=== PATIENT | male | born 1975 | race American Indian/Alaskan Native ===

== ENCOUNTER 2021-07-01 19:04 | Emergency (ER) | payer BC, MEDICARE ==
[2021-07-01] MEDS ORDERED: ACETAMINOPHEN 325 MG TAB PO ONE (21:30)
--- NOTE | 2021-07-01 21:30 | Emergency Department Report ---
ED Lower Extremity HPI - General Chief Complaint: Extremity Injury, Lower Stated Complaint: ANKLE PAIN Time Seen by Provider: 07/01/21 21:23 Source: patient Mode of arrival: Ambulatory Limitations: Physical Limitation - History of Present Illness Initial Comments: The patient was evaluated in the emergency department for symptoms described in the history of present illness. He/she was evaluated in the context of the global COVID-19 pandemic, which necessitated consideration that the patient might be at risk for infection with the virus that causes COVID-19. Institutional protocols and algorithms that pertain to the evaluation of patients at risk for COVID-19 are in a state of rapid change based on information released by regulatory bodies including the CDC and federal and state organizations. These policies and algorithms were followed during the patient's care in the emergency department. Please note that these policies, procedures and recommendations changed on a rapid basis. The patient is a 45-year-old gentleman. He is not known to myself previously. He has a history of end-stage renal disease on hemodialysis, Monday, last dialysis session was yesterday, scheduled for dialysis tomorrow, also reports a history of hypertension. He presented to the ER today with a complaint of accidental right-sided ankle p ain, after tripping off of a hover board. This happened approximately 4 hours ago. He believes that he did not hit his head or neck, and he only has throbbing right-sided ankle pain which is diffuse, and also anterior tibial pain. He denies additional injuries and complaints MD Complaint: ankle injury, fall -: Sudden, hour(s) Injury: Ankle: Right Type of Injury: blunt Improves With: rest Worsens With: movement, palpation Context: fall, direct blow, other (Fell out of the hover board) Associated Symptoms: swelling, able to partially bear weight. denies: numbness, tingling - Related Data Previous Rx's Medication Instructions Recorded Last Taken Type Acetaminophen [Tylenol] 650 mg PO Q4HR PRN #30 cap 07/01/21 Unknown Rx HYDROmorphone [Dilaudid] 1 mg PO Q6HR PRN #6 tablet 07/01/21 Unknown Rx Allergies Allergy/AdvReac Type Severity Reaction Status Date / Time No Known Allergies Allergy Verified 07/01/21 20:32 ED Review of Systems ROS: Stated complaint: ANKLE PAIN Other details as noted in HPI Eyes: denies: eye discharge ENT: denies: epistaxis Respiratory: denies: cough Cardiovascular: denies: chest pain Gastrointestinal: denies: abdominal pain Musculoskeletal: joint swelling, arthralgia, myalgia Neurological: denies: weakness ED Past Medical Hx - Past Medical History Hx Renal Disease: Yes (DIALYSIS MWF) - Surgical History Hx Cholecystectomy: Yes - Medications Home Medications: Home Medications Medication Instructions Recorded Confirmed Last Taken Type Acetaminophen [Tylenol] 650 mg PO Q4HR PRN #30 cap 07/01/21 Unknown Rx HYDROmorphone [Dilaudid] 1 mg PO Q6HR PRN #6 tablet 07/01/21 Unknown Rx ED Physical Exam - General Limitations: No Limitations, Physical Limitation General appearance: alert, in no apparent distress - Head Head exam: Present: atraumatic, normocephalic - Eye Eye exam: Present: normal appearance, EOMI. Absent: nystagmus - ENT ENT exam: Present: normal exam, normal orophraynx, mucous membranes moist, normal external ear exam - Neck Neck exam: Present: normal inspection, full ROM. Absent: tenderness, meningismus - Respiratory Respiratory exam: Present: normal lung sounds bilaterally. Absent: respiratory distress, wheezes, rales, rhonchi, stridor, decreased breath sounds, prolonged expiratory - Cardiovascular Cardiovascular Exam: Present: regular rate, normal rhythm, normal heart sounds. Absent: bradycardia, tachycardia, irregular rhythm, systolic murmur, diastolic murmur, rubs, gallop - GI/Abdominal GI/Abdominal exam: Present: soft. Absent: distended, tenderness, guarding, rebound, rigid, pulsatile mass - Rectal Rectal exam: Present: deferred - Extremities Exam Extremities exam: Present: full ROM (Bilateral upper extremities, left lower extremity. Right hip, right knee. Range of motion right ankle intact, although slow secondary to pain.), tenderness (Right ankle tenderness. There is no knee tenderness. There is no hip tenderness.), other (There is a left upper extremity fistula, with an appropriate thrill. 2+ pulses noted in the bilateral upper and lower extremities. The upper extremities are nontender. The left lower extremity is nontender. The right lower extremity is nontender with the exception of the right ankle.). Absent: normal inspection (The right ankle is swollen. Right ankle is tender anteriorly, medially and laterally.) - Back Exam Back exam: Present: normal inspection. Absent: tenderness, CVA tenderness (R), CVA tenderness (L), paraspinal tenderness, vertebral tenderness - Neurological Exam Neurological exam: Present: alert, oriented X3, other (No facial droop. Tongue midline. Extraocular movements intact bilaterally. Facial sensation intact to light touch in V1, V2, V3 distribution bilaterally. 5 and a 5 strength in 4 extremities. Sensation intact to light touch in 4 extremities.). Absent: motor sensory deficit - Psychiatric Psychiatric exam: Present: normal affect, normal mood - Skin Skin exam: Present: warm, dry, intact, normal color. Absent: rash ED Course Vital Signs 07/01/21 07/01/21 20:34 21:45 Temperature 98.6 F Pulse Rate 87 Respiratory 20 14 Rate Blood Pressure 190/90 O2 Sat by Pulse 100 Oximetry - Reevaluation(s) Reevaluation #1: 07/01/21 21:35 Differential diagnosis, including but limited to: Sprain, strain, fracture, dislocation Assessment and plan: 45-year-old gentleman, who is afebrile with reassuring vital signs with exception of chronic hypertension (please reference the [employer] clinical policy on asymptomatic hypertension), presenting with isolated right ankle pain after mechanical fall from a hover board. Patient drove to the emergency room today. Unfortunately since he is a dialysis patient, NSAIDs contraindicated. Start with acetaminophen, obtain right ankle x-ray. Reassess. Anticipate discharge with splint, weightbearing as tolerated with cane, outpatient follow-up with podiatry, orthopedics or sports medicine. He is scheduled for hemodialysis tomorrow. He is not volume overloaded clinically. He denies additional i njuries and complaints 07/01/21 22:05 X-ray of the right ankle demonstrates an isolated left distal fibular fracture. Aircast, crutches, nonweightbearing, as needed pain medication, outpatient orthopedic/podiatry follow-up. ED Lower Extremity MDM - Lab Data Vital Signs 07/01/21 20:34 Temperature 98.6 F Pulse Rate 87 Respiratory 20 Rate Blood Pressure 190/90 O2 Sat by Pulse 100 Oximetry - Radiology Data Radiology results: report reviewed, image reviewed interpreted by me: X-ray of the ankle, reviewed by myself, 3 views, right ankle, demonstrates minimally displaced right distal fibular fracture. No additional injuries n oted. Incidental calcified anterior artery is noted. Right ankle-3 views INDICATION: fall from hover board, right ankle pain. COMPARISON: None available. IMPRESSION: [place] type B fracture of the lateral malleolus with fracture line at the level of the tibiotalar joint space. Considerable overlying soft tissue swelling. No other fracture identified. Question slight widening of the medial mortise which can be seen with underlying ligamentous injury. Mild enthesopathic change along the calcaneal tuberosity. Signer Name: Branden Che MD Signed: 07/01/2021 9:30 PM Workstation Name: [id number] Critical care attestation.: If time is entered above; I have spent that time in minutes in the direct care of this critically ill patient, excluding procedure time. ED Disposition Clinical Impression: End stage renal disease, Elevated blood pressure reading Fall Qualifiers: Encounter type: initial encounter Qualified Code(s): W19.XXXA - Unspecified fall, initial encounter Closed fracture of right distal fibula Qualifiers: Encounter type: initial encounter Fracture morphology: unspecified fracture morphology Qualified Code(s): S82.831A - Other fracture of upper and lower end of right fibula, initial encounter for closed fracture Disposition: 01 HOME / SELF CARE / HOMELESS Is pt being admited?: No Does the pt Need Aspirin: No Condition: Good Instructions: Tibial and Fibular Fractures, Hypertension, Adult Additional Instructions: The patient is found to have a right distal fibular fracture that is minimally displaced. The patient should keep the splint on, remain nonweightbearing, use crutches, take the prescribed pain medication as needed and directed, wear appropriately supportive footwear on his unaffected foot/left lower extremity, we recommend follow-up with an orthopedist or morning show newscast producer within the next [address] Cabezas is a local morning show newscast producer. [facility] is a local orthopedics group. Local orthopedic surgeons include Dr. Thayer and Dr. Paulino Please continue current outpatient blood pressure medication. Please continue current outpatient hemodialysis schedule. Please return to the emergency room right away with new pain, worsened pain, migration of pain, projectile vomiting, change in mental status, confusion, inability tolerate liquid feeds, new, worsened or different symptoms not present on the initial emergency room evaluation Prescriptions: HYDROmorphone [Dilaudid] 1 mg PO Q6HR PRN #6 tablet PRN Reason: Pain , Severe (7-10) Acetaminophen [Tylenol] 650 mg PO Q4HR PRN #30 cap PRN Reason: Pain , Severe (7-10) Referrals: GISSEL PAULINO MD [Staff Physician] - 3-5 Days WILMER THAYER MD [Staff Physician] - 3-5 Days AMY CABEZAS DPM [Staff Physician] - 3-5 Days [facility] [Provider Group] - 3-5 Days
--- NOTE | 2021-07-01 22:35 | XRay Report ---
Right ankle-3 views INDICATION: fall from hover board, right ankle pain. COMPARISON: None available. IMPRESSION: [place] type B fracture of the lateral malleolus with fracture line at the level of the ti biotalar joint space. Considerable overlying soft tissue swelling. No other fracture identified. Ques tion slight widening of the medial mortise which can be seen with underlying ligamentous injury. Mild enthesopathic change along the calcaneal tuberosity. Signer Name: Branden Che MD Signed: 07/01/2021 10:30 PM Workstation Name: [id number]
[2021-07-01 23:07] VITALS: BP 182/91
== END 2021-07-01 22:58 | disposition home or self-care (01) ==
LOC: ED 19:04
DX: S82.831A Other fracture of upper and lower end of right fibula, initial encounter for closed fracture (principal); N18.6 End stage renal disease; R03.0 Elevated blood-pressure reading, without diagnosis of hypertension; Z90.49 Acquired absence of other specified parts of digestive tract; W19.XXXA Unspecified fall, initial encounter; Y93.89 Activity, other specified; Y92.89 Other specified places as the place of occurrence of the external cause; Y99.8 Other external cause status
CPT/HCPCS: 99283